=== PATIENT | female | born 1950 | race American Indian/Alaskan Native ===

== ENCOUNTER 2016-09-12 15:20 | Emergency (ER) | payer MEDICARE, OTHER ==
[2016-09-12 15:20] VITALS: BMI 36.2
--- NOTE | 2016-09-12 16:50 | C.PDOC ---
History Of Present Illness 66 year old patient, hypertension, hypercholesterolemia, kidney stones, CHF, COPD, diabetes, pulmonary embolism, chronic kidney disease, and DVT, presents to the emergency department complaining of cramping abdominal pain radiating from the left to the right since last night. Patient states there is increased girth and cramping today. As per [place] [employer], 120 Tylenol #3 was prescribed on . Patient states she takes the Tylenol daily for her migraine and headache issues. Patient denies fever, chills, nausea, vomiting, diarrhea, chest pain, or shortness of breath. Time Seen by Provider: 09/12/16 16:07 Chief Complaint (Nursing): Female Genitourinary History Per: Patient History/Exam Limitations: no limitations Onset/Duration Of Symptoms: Hrs (last night) Current Symptoms Are (Timing): Still Present Context: Other Severity: Mild Pain Scale Rating Of: 3 Location Of Pain/Discomfort: Other (radiating from left side to right side) Radiation Of Pain To:: Other Quality Of Discomfort: Cramping, "Pain" Exacerbating Factors: None Alleviating Factors: None Last Bowel Movement: Today Recent travel outside of the [place]: No Abnormal Vaginal Bleeding: No Past Medical History Reviewed: Historical Data, Nursing Documentation, Vital Signs Vital Signs: Last Vital Signs Temp 97.6 F 09/12/16 15:23 Pulse 83 09/12/16 15:23 Resp 20 09/12/16 15:23 BP 116/78 09/12/16 15:23 Pulse Ox 97 09/12/16 18:28 - Medical History PMH: Asthma, Back Problems, CHF, COPD, Diabetes, Deep Vein Thrombosis, HTN, Hypercholesterolemia, Kidney Stones, Pulmonary Embolism, Chronic Kidney Disease , Seizures Surgical History: Cholecystectomy, Tonsillectomy Family History: States: Unknown Family Hx - Social History Hx Tobacco Use: No Hx Alcohol Use: No Hx Substance Use: No - Immunization History Hx Tetanus Toxoid Vaccination: Yes Hx Influenza Vaccination: Yes Hx Pneumococcal Vaccination: Yes Review Of Systems Except As Marked, All Systems Reviewed And Found Negative. Constitutional: Negative for: Fever, Chills Cardiovascular: Negative for: Chest Pain Respiratory: Negative for: Shortness of Breath Gastrointestinal: Positive for: Abdominal Pain. Negative for: Nausea, Vomiting , Diarrhea Physical Exam - Physical Exam Appears: Non-toxic, No Acute Distress, Other (morbidly obese, asleep) Skin: Warm, Dry Head: Atraumatic, Normacephalic Eye(s): bilateral: Normal Inspection, EOMI, Other (pinpoint pupils) Oral Mucosa: Moist Neck: Normal ROM, Supple Chest: Symmetrical Cardiovascular: Rhythm Regular Respiratory: Normal Breath Sounds, No Rales, No Rhonchi, No Wheezing Gastrointestinal/Abdominal: Bowel Sounds (dull to percussion), Soft, No Tenderness, No Guarding, No Rebound, Other (globus belly) Back: Normal Inspection, No CVA Tenderness Extremity: Normal ROM Neurological/Psych: Oriented x3, Normal Speech, Normal Cognition Gait: Steady ED Course And Treatment - Laboratory Results Result Diagrams: 09/12/16 17:13 09/12/16 17:13 Lab Interpretation: Normal (ua neg, no RBC's) O2 Sat by Pulse Oximetry: 97 (room air) Pulse Ox Interpretation: Normal - Radiology CXR: Interpreted by Me CXR Interpretation: Yes: No Acute Disease - Other Rad abd x 2 X-Ray: Interpreted by Me (+FOS) CT ABd/pelvis X-Ray: Read By Radiologist (no ureteral stones) Progress Note: Plan: -Abdomen/Pelvis CT. -Labs. -Obstructive series Reevaluation Time: 18:26 Reassessment Condition: Improved Medical Decision Making Medical Decision Making: constipation due to diet, current narcotics use of T#3 for chronic headache pains, and sedentary lifestyle LOW susp of renal colic as her abdominal colic radiates from L lateral abd to R lateral abdl UA clean and CT neg. despite pt claiming she had a kidney removed many years ago, 2 functional kidneys noted on CT Abd/Pelvis. Disposition Doctor Will See Patient In The: Office Counseled Patient/Family Regarding: Studies Performed, Diagnosis - Disposition Referrals: Artem Allen MD [Staff Provider] - Zafar Osorio MD [Staff Provider] - Disposition: HOME/ ROUTINE Disposition Time: 18:27 Condition: GOOD Additional Instructions: drink a laxative now (one bottle of Mag Citrate) and re-evaluate your abdominal discomfort after using the bathroom 2-3 times. Continue Colace 100 mg (stool softener) twice a day to help prevent constipation , especially if you are taking narcotic pain relievers daily for your chronic pains: they are VERY constipating. Eat more fresh fruits and vegetables, drink more water. Walk 1/2 hour per day for exercise- helps promote intestinal motility and avoid constipation. Follow-up w Dr. Allen or Dr. Maldonado as needed Instructions: Constipation (ED) - Clinical Impression Clinical Impression: Colicky LLQ abdominal pain - Scribe Statement The provider has reviewed the documentation as recorded by the Scribe Zayda Dupree Provider Attestation: All medical record entries made by the Scribe were at my direction and personally dictated by me. I have reviewed the chart and agree that the record accurately reflects my personal performance of the history, physical exam, medical decision making, and the department course for this patient. I have also personally directed, reviewed, and agree with the discharge instructions and disposition.
[2016-09-12 17:18] LABS: BASO # 0.1 K/uL (0.0-0.2); BASO % 0.8 % (0.0-2.0); EOS # 0.5 K/uL (0.0-0.7); EOS % 7.1 % (0.0-4.0); HEMATOCRIT 35.9 % (34.0-47.0); LYMPH # 1.7 K/uL (1.0-4.3); MEAN CELL VOLUME 84.8 fL (81.0-99.0); MEAN CORPUSCULAR HEMOGLOBIN 27.6 pg (27.0-31.0); MEAN CORPUSCULAR HGB CONC 32.6 g/dL (33.0-37.0); MEAN PLATELET VOLUME 9.4 fL (7.2-11.7); MONO # 0.5 K/uL (0.0-0.8); MONO % 8.2 % (0.0-10.0); RED CELL DISTRIBUTION WIDTH 14.4 % (11.5-14.5); WHITE BLOOD COUNT 6.5 K/uL (4.8-10.8)
--- NOTE | 2016-09-12 17:18 | CT ---
PROCEDURE: CT Abdomen and Pelvis without Oral or IV contrast. HISTORY: ? L renal colic COMPARISON: CT of the abdomen and pelvis without oral or IV contrast performed 04/23/13 TECHNIQUE: Contiguous axial images of the abdomen and pelvis. No oral or IV contrast administered. Coronal and Sagittal reformats generated and reviewed. Radiation dose: Total exam DLP = 1188.29 mGy-cm. This CT exam was performed using one or more of the following dose reduction techniques: Automated exposure control, adjustment of the mA and/or kV according to patient size, and/or use of iterative reconstruction technique. FINDINGS: There is limited evaluation of the solid organs without the administration of IV contrast. LOWER THORAX: Bibasilar atelectasis. No visible pleural effusion or pneumothorax. LIVER: Hepatomegaly. GALLBLADDER AND BILE DUCTS: Cholecystectomy. PANCREAS: Unremarkable unenhanced appearance. SPLEEN: 20 mm and 17 mm probable splenules. Otherwise unremarkable unenhanced appearance. ADRENALS: Unremarkable unenhanced appearance. KIDNEYS AND URETERS: No hydronephrosis or obstructing renal calculus. Punctate nonobstructing left renal calculi. BLADDER: The urinary bladder appears unremarkable. REPRODUCTIVE: Uterus is absent, presumably due to hysterectomy. APPENDIX: The appendix appears within limits of caliber. No secondary signs of acute appendicitis. BOWEL: The stomach is nondistended. Lack of oral contrast limits evaluation for bowel pathology. The bowel loops appear within normal limits of caliber without evidence of intestinal obstruction. PERITONEUM: No significant free fluid. No definite free air. LYMPH NODES: Prominent bilateral inguinal lymph nodes, nonspecific. VASCULATURE: No aortic aneurysm. BONES: Degenerative changes. OTHER FINDINGS: None. IMPRESSION: Punctate nonobstructing left renal calculi. No hydronephrosis bilaterally. Hepatomegaly. Additional findings as above.
[2016-09-12 17:25] LABS: CHLORIDE 106 mmol/L (98-107)
[2016-09-12 17:26] LABS: POTASSIUM 3.9 mmol/L (3.6-5.2); SODIUM 143 mmol/L (132-148)
[2016-09-12 17:28] LABS: ALKALINE PHOSPHATASE 102 U/L (38-126); AST/SGOT 16 U/L (14-36); BILIRUBIN,TOTAL 0.4 mg/dL (0.2-1.3); BLOOD UREA NITROGEN 20 mg/dL (7-17); CARBON DIOXIDE 26 mmol/L (22-30); GFR AFRICAN-AMERICAN > 60; TOTAL PROTEIN 7.4 g/dL (6.3-8.3)
[2016-09-12 17:29] LABS: ALT/SGPT 23 U/L (9-52); GLUCOSE,RANDOM 96 mg/dL (65-105)
--- NOTE | 2016-09-12 18:11 | RAD ---
PROCEDURE: Radiographs of the chest and abdomen (obstructive series) HISTORY: abd pain COMPARISON: CT of the abdomen and pelvis performed the same day. Obstructive series performed 07/24/16 TECHNIQUE: AP radiograph of the chest, with upright and supine radiographs of the abdomen. FINDINGS: Examination limited by habitus. CHEST: Heart size appears within normal limits. Atherosclerotic calcification of a tortuous aorta. Bibasilar atelectasis. No significant pleural effusion or definite pneumothorax identified. Please note that chest x-ray has limited sensitivity for the detection of pulmonary masses. Degenerative changes of the thoracic spine and shoulders. ABDOMEN AND PELVIS: For quadrant surgical clips. Nonobstructive bowel gas pattern. No definite free air. Moderate constipation. Degenerative changes of the lumbar spine and pelvis. IMPRESSION: Moderate constipation. Bibasilar atelectasis.
[2016-09-12 18:18] LABS: RBC URINE < 1 /hpf (0-3); URINE BILIRUBIN NEGATIVE (NEGATIVE); URINE BLOOD NEGATIVE (NEGATIVE); URINE COLOR Straw (YELLOW); URINE GLUCOSE (UA) NORMAL (Normal); URINE KETONE NEGATIVE (NEGATIVE); URINE LEUKOCYTE ESTERASE NEG Leu/uL (Negative); URINE PROTEIN NEGATIVE (NEGATIVE); URINE UROBILINOGEN NORMAL mg/dL (0.2-1.0)
[2016-09-12] MEDS ORDERED: Albuterol-Ipratrop 3 mg / 0.5 (3 ml) UD INH STA (18:36)
[2016-09-12 18:41] VITALS: BP 122/67; PULSE 72; RESP 18; TEMP 98.2; O2SAT 100
[2016-09-12] MEDS ORDERED: Albuterol-Ipratrop 3 mg / 0.5 (3 ml) UD ONE (18:49)
== END 2016-09-12 19:41 | disposition home or self-care (01) ==
LOC: C.ER 15:20
DX: R10.32 Left lower quadrant pain (principal)
CPT/HCPCS: 74022; 74176; 80053; 81001; 83690; 83880; 84484; 85025; 99284; G0480